=== PATIENT | male | born 1940 | race Two or more races ===

== ENCOUNTER 2019-06-18 17:12 | Emergency (ER) | payer OTHER, MEDICAID ==
[~2019-06-18] VITALS: Ht 167.6 cm; Wt 94.1 kg
[2019-06-18] MEDS ORDERED: GLIP10 PO (17:23)
[2019-06-18] MEDS ORDERED: GABA-533 PO (17:23)
[2019-06-18] MEDS ORDERED: FINA5TAB41 PO (17:23)
[2019-06-18] MEDS ORDERED: TAMS-1 PO (17:23)
[2019-06-18] MEDS ORDERED: LOSA1TAB37 PO (17:23)
[2019-06-18] MEDS ORDERED: AMLO5TAB9 PO (17:23)
[2019-06-18 17:39] LABS: BASOPHILS % (AUTO) 0.5 % (0.0-2.0); EOSINOPHILS % (AUTO) 1.7 % (1.0-6.0); HEMOGLOBIN 13.5 g/dL (13.5-17.5); LYMPHOCYTES # (AUTO) 3.2 K/uL (1.0-4.8); LYMPHOCYTES % (AUTO) 36.9 % (22.0-44.0); MEAN CORPUSCULAR HEMOGLOBIN 30.1 pg (26.0-34.0); MEAN CORPUSCULAR HGB CONC 33.6 G/dL (31.0-37.0); MEAN CORPUSCULAR VOLUME 89 fL (80-100); MONOCYTES # (AUTO) 0.6 K/uL (0.1-1.0); MONOCYTES % (AUTO) 7.4 % (2.0-9.0); NEUTROPHILS # (AUTO) 4.6 K/uL (1.8-7.7); NEUTROPHILS % (AUTO) 53.5 % (40.0-70.0); PLATELET COUNT (AUTO) 171 K/uL (150-450); RED BLOOD CELL COUNT(AUTO) 4.48 MIL/uL (4.50-5.90); RED CELL DISTRIBUTION WIDTH 14.1 % (11.5-14.5)
[2019-06-18 18:17] LABS: CALCIUM, TOTAL 8.9 mg/dL (8.8-10.5); CREATININE 1.7 mg/dL (0.60-1.30); POTASSIUM 4.5 mmol/L (3.5-5.1)
[2019-06-18 18:22] LABS: ALBUMIN 3.3 g/dL (3.4-5.0); BILIRUBIN,TOTAL 0.5 mg/dL (0.1-1.0); TOTAL PROTEIN, SERUM 7.2 g/dL (6.4-8.2)
[2019-06-18 19:42] LABS: PROTHROMBIN TIME 10.5 SEC (9.4-11.6)
[2019-06-18 19:59] LABS: D-DIMER 0.87 mg/L FEU (0.00-0.50)
[2019-06-18] MEDS ORDERED: IPRATROPIUM BROMIDE 0.5 MG/2.5 ML NEB SOLUTION NEB ONE (20:45)
[2019-06-18] MEDS ORDERED: ALBUTEROL SULFATE 2.5 MG/0.5 ML NEB SOLUTION NEB ONE (20:45)
[2019-06-18] MEDS ORDERED: SODIUM CHLORIDE 0.9% 0 ML ONE (21:22)
[2019-06-18] MEDS ORDERED: IOVERSOL 350 MG/ML 100 ML VIAL ONE (21:22)
[2019-06-18] MEDS ORDERED: PENTETATE DTPA TC99M/MCL ISOTOPE 1 EA INJ INJ ONE (23:45)
[2019-06-19] MEDS ORDERED: MAA ALBUMIN AGGREGATED TC99M/UD<10MCL ISOTOPE 1 EA INJ INJ ONE (00:05)
[2019-06-19] MEDS ORDERED: CeFAZolin 1 GM/DEXTROSE 50 ML IV ONE (03:00)
[2019-06-19] MEDS ORDERED: SULFAMETHOX/TRIMETH DS 800-160 MG/TABLET PO ONE (03:00)
[2019-06-19] MEDS ORDERED: MUPIROCIN CALCIUM 2% 22 GM OINTMENT TP ONE (03:45)
[2019-06-19 04:41] VITALS: BP 143/73
== END 2019-06-19 04:40 | disposition home or self-care (01) ==
LOC: EMS 17:12
DX: B35.1 Tinea unguium (principal); L03.116 Cellulitis of left lower limb; E11.22 Type 2 diabetes mellitus with diabetic chronic kidney disease; R06.00 Dyspnea, unspecified; I10 Essential (primary) hypertension
CPT/HCPCS: 36415; 71045; 78582; 80053; 82962; 83880; 84484; 85025; 85379; 85610; 85730; 87070; 87205; 93005; 93971; 94640; 96365; 99284; A9539; A9540; J0690; 94060; J7050